=== PATIENT | male | born 1940 | race Caucasian/White ===

== ENCOUNTER 2023-09-05 16:00 | Inpatient (IN) | payer OTHER ==
[2023-09-05 23:28] VITALS: BMI 28.3
[2023-09-06] MEDS ORDERED: Ipratropium/Albuterol 3 ML NEB NEB PRN (08:45)
[2023-09-06] MEDS: Cholecalciferol 1,000 UNITS (25 MCG) TAB PO SCH (09:27)
[2023-09-06] MEDS: Amlodipine 5 MG TAB PO SCH (09:28)
[2023-09-06] MEDS: Pantoprazole DR 40 MG TAB PO SCH (09:28)
[2023-09-06] MEDS: Lisinopril 10 MG TAB PO SCH (09:28)
[2023-09-06] MEDS: Metoprolol Tartrate 50 MG TAB PO SCH ×2 (09:29→19:25)
[2023-09-06] MEDS: Aspirin 81 mg Enteric Coated Tablet PO SCH (09:29)
[2023-09-06] MEDS ORDERED: Senokot S 8.6-50 MG TAB PO PRN (10:17)
[2023-09-06] MEDS: Acetaminophen 325 MG TAB PO PRN (19:24)
[2023-09-06] MEDS: Simvastatin 5 MG TAB PO SCH (19:26)
[2023-09-06] MEDS: Donepezil HCl 10 MG TAB PO SCH (19:27)
[2023-09-06] MEDS: QUEtiapine 25 MG TAB PO SCH (19:27)
[2023-09-06 21:34] VITALS: BMI 28.3
[2023-09-07] MEDS: Cholecalciferol 1,000 UNITS (25 MCG) TAB PO SCH (08:22)
[2023-09-07] MEDS: metFORMIN XR 500 MG ER.TAB PO SCH (08:35)
[2023-09-08] MEDS: metFORMIN XR 500 MG ER.TAB PO SCH (08:41)
[2023-09-09] MEDS: Acetaminophen 325 MG TAB PO PRN (20:20)
[2023-09-09] MEDS: metFORMIN XR 500 MG ER.TAB PO SCH (20:21)
[2023-09-09] MEDS: Proctozone-HC 30 GM TUBE TOP SCH (20:24)
[2023-09-10] MEDS: Saccharomyces boulardii 250 MG CAP PO SCH (08:45)
[2023-09-10] MEDS ORDERED: Proctozone-HC 30 GM TUBE TOP SCH (09:00)
[2023-09-10] MEDS: Proctozone-HC 30 GM TUBE TOP SCH (18:26)
[2023-09-11] MEDS: Proctozone-HC 30 GM TUBE TOP SCH (20:05)
[2023-09-13 13:44] VITALS: BP 101/51; TEMP 98.9
== END 2023-09-13 14:39 | disposition home or self-care (01) | DRG 948 ==
LOC: MADMS 23:13
PROVIDERS: ADMIT Emergency Medicine; ATTEND Family Medicine
DX: R53.81 Other malaise (principal); I10 Essential (primary) hypertension; E78.5 Hyperlipidemia, unspecified; F03.90 Unspecified dementia, unspecified severity, without behavioral disturbance, psychotic disturbance, mood disturbance, and anxiety; E11.9 Type 2 diabetes mellitus without complications; Z79.82 Long term (current) use of aspirin; Z79.899 Other long term (current) drug therapy; Z79.02 Long term (current) use of antithrombotics/antiplatelets; Z88.0 Allergy status to penicillin; Z87.891 Personal history of nicotine dependence
CPT/HCPCS: 36416